=== PATIENT | male | born 2000 | race Caucasian/White ===

== ENCOUNTER 2020-09-26 03:09 | Emergency (ER) | payer OTHER ==
[~2020-09-26 03:09] MED LIST: AMOXICILLIN875 MG PO; AZITHROMYCIN250 MG PO; BROMFED DM COU473 ML PO; IBUPROFEN800 MG PO; TESSALON PERLE100 M1 PO; TESSALON PERLE100 MG PO; VENTOLIN HFA IN18 GM INH
[2020-09-26] MEDS ORDERED: IBUPROFEN800 MG PO (03:35)
== END 2020-09-26 04:00 | disposition home or self-care (01) ==
LOC: FER 03:09
DX: R25.2 Cramp and spasm (principal); F17.210 Nicotine dependence, cigarettes, uncomplicated; Z88.0 Allergy status to penicillin
CPT/HCPCS: 99283

== ENCOUNTER 2020-12-06 02:16 | Emergency (ER) | payer OTHER ==
[2020-12-06] MEDS ORDERED: ETODOLAC300 MG PO (05:03)
[2020-12-06] MEDS ORDERED: NORCO 5-325 TA1 EACH PO (05:03)
== END 2020-12-06 05:25 | disposition home or self-care (01) ==
LOC: FER 02:16
DX: S64.92XA Injury of unspecified nerve at wrist and hand level of left arm, initial encounter (principal); S63.502A Unspecified sprain of left wrist, initial encounter; S50.311A Abrasion of right elbow, initial encounter; S20.411A Abrasion of right back wall of thorax, initial encounter; S30.810A Abrasion of lower back and pelvis, initial encounter; F17.210 Nicotine dependence, cigarettes, uncomplicated; V18.9XXA Unspecified pedal cyclist injured in noncollision transport accident in traffic accident, initial encounter; Y92.410 Unspecified street and highway as the place of occurrence of the external cause
CPT/HCPCS: 71046; 72170; 73080; 73110; 73590